=== PATIENT | female | born 1960 | race Two or more races ===

== ENCOUNTER 2020-09-28 13:44 | Emergency (ER) | payer MEDICAID, SELFPAY ==
[2020-09-28 13:52] VITALS: RESP 16; TEMP 36.8; O2SAT 98; BMI 33.3
[2020-09-28 13:55] VITALS: BP 138/91; PULSE 88
--- NOTE | 2020-09-28 14:10 | ED_ITS ---
HPI - URI/Sore Throat General Chief Complaint: Upper Respiratory Symptoms Stated Complaint: covid symptoms Time Seen by Provider: 09/28/20 14:09 Source: patient Mode of arrival: ambulatory History of Present Illness HPI Narrative: Female the past medical history of hypertension presented to ED complaining of subjective fever, headache, body aches x4 days. Denies sore throat, ear pain, cough, CP/SOB, recent travel, sick contacts MD elicited complaint: fever Related Data Allergies Allergy/AdvReac Type Severity Reaction Status Date / Time No Known Allergies Allergy Unverified 06/24/20 18:45 [No Known Allergies*] Review of Systems Review of Systems: Constitutional: No Weight loss, +Subj Fever, No Chills ENT/Mouth: No Ear Pain, No Nasal Congestion, No Sinus Pain, No Hoarseness, No sore throat, No Rhinorrhea, No Swallowing Difficulty Cardiovascular: No Chest Pain, No SOB Respiratory: No Cough Gastrointestinal: No Nausea, No Vomiting, No Diarrhea Musculoskeletal: No joint pain, + Myalgias, No Joint Swelling Skin: No Skin Lesions, No rash Neuro: +headache Yes all other systems are reviewed and are negative [facility] Past Medical History Attestation statement: The following information was validated with the patient. Medical History (Updated 09/28/20 @ 14:14 by DAVID Guthrie) HTN (hypertension) No known health problems Social History Social History Advance Directives: No Advance Directives Information Provided: Yes Physical Exam Vital Signs: Vital Signs: Last Vital Signs Temp 98.3 F 09/28/20 13:52 Pulse 88 09/28/20 13:55 Resp 16 09/28/20 13:52 BP 138/91 H 09/28/20 13:55 Pulse Ox 98 09/28/20 13:52 Body Mass Index 33.3 Const: General: cooperative and healthy appearing Orientation/consciousness: patient oriented x3 Limitations: no limitations HENMT: Head: Yes normal to inspection Ears: hearing grossly normal bilaterally General nose exam: Normal external nose present Face and sinus: Yes normal facial exam Eyes: General: appearance normal, both eyes and all related structures EOM: EOMs intact bilaterally Neck: Neck: Yes normal visual inspection Resp: Effort & Inspection: normal respiratory effort Cardio: Rate: regular rate GI: Inspection: Yes normal to inspection Skin: Rashes: no rashes Wounds: no wounds Neuro: General: patient oriented x3 Gait exam (Neuro): Normal gait present Extrem: General: Yes normal to inspection MDM - URI/Sore Throat MDM Narrative Medical decision making narrative: On exam VSS, NAD/well-appearing, nontoxic. Likely viral syndrome/COVID-19. Afebrile today in the ED. Low concern for pneumonia Discharge Plan Discharge Clinical Impression: Upper respiratory infection Qualifiers: URI type: unspecified URI Qualified Code(s): J06.9 - Acute upper respiratory infection, unspecified Patient Disposition: Home, Self-Care Instructions: Viral Syndrome (ED) Additional Instructions: Based on your symptoms and history we have sent a COVID-19. Although your RESULT IS PENDING at this time. RESULTS should return within 3-7 days . At this time you will be contacted with either NEGATIVE OR POSITIVE results. -Please wait until we contact you for your results. At this time you will be okay for discharge. Please plan for self quarantine for up to 14 days. Do not expose yourself to others. You may not go to work. If testing does come back negative you may return to activities as long as you are no longer having any symptoms for at least 3 days. Please continue to follow cold instructions and wash your hands frequently. You may take Tylenol as directed on the bottle for pain or fever. CDC Guidelines for home isolation: - Stay away from others - WEAR A MASK if you are sick AND STAY HOME - Cover your mouth and nose with a tissue when you cough or sneeze. Dispose of tissues in a lined trash can and wash your hands immediately with soap and water for at least 20 seconds. If soap and water are not available, clean hands with alcohol-based hand top ironer that contains at least 60% alcohol. - Clean your hands often with soap and water for at least 20 seconds - Avoid touching your eyes, nose and mouth with unwashed hands - Do not share dishes, drinking glasses, cups, eating utensils, towels, or bedding with other people in your home. After using these items, wash them thoroughly with soap and water or put in the finance associate. - Clean high-touch surfaces in your isolation area ( sick room and bathroom) e very day; let a caregiver clean and disinfect high-touch surfaces in other areas of the home. Clean the area or item with soap and water or another detergent if it is dirty. Then, use a household disinfectant. - Limit contact with pets and animals: If you must care for a pet, wash your hands before and after interacting with them) Seg?n marquita s?ntomas e historial, le enviamos un COVID-19. Aunque riojas RESULTADO EST? PENDIENTE en catherien momento. Los RESULTADOS deben regresar dentro de 3-7 d?as. En catherine momento ser? contactado con resultados NEGATIVOS O POSITIVOS. -Espere hasta que nos comuniquemos con usted para conocer marquita resultados. En catherine momento estar? ebrnadine para el sarah. Planifique la auto cuarentena massiel un m?ximo de 14 d?as. No se exponga a los dem?s. Puede que no vaya a trabajar. Si las pruebas resultan negativas, puede volver a marquita actividades siempre que ya no tenga boyd?n s?ntoma massiel al menos 3 d?as. Contin?e siguiendo las instrucciones en fr?o y l?vese las ren con frecuencia. Puede elvia Tylenol tasha se indica en el frasco para el dolor o la fiebre. [place]autas de los CDC para el aislamiento en el hogar: - Mantente alejado de los dem?s - USE SIERRA M?SCARA si est? enfermo Y QUEDE EN CASA - C?brase la boca y la nariz con un pa?uelo cuando tosa o estornude. Deseche los pa?uelos desechables en un bote de basura forrado y l?vese las ren inmediata mente con agua y jab?n massiel al menos 20 segundos. Si no dispone de agua y jab?n, l?vese las ren con un desinfectante para ren a base de alcohol que contenga al menos un 60% de alcohol. - L?vese las ren con frecuencia con agua y jab?n massiel al menos 20 segundos - Evite tocarse los ojos, la nariz y la boca con las ren sin nela - No comparta platos, vasos, tazas, cubiertos, toallas o ropa de cama con otras personas en riojas hogar. Despu?s de usar estos art?culos, l?velos bernadine con agua y jab?n o p?ngalos en el lavavajillas. - Limpie las superficies de alto contacto en riojas ?chetna de aislamiento ( habitaci?n de enfermo y ba?o) todos los d?as; deje que un cuidador limpie y desinfecte las superficies de alto contacto en otras ?reas de la casa. Limpie el ?chetna o el art?culo con agua y jab?n u otro detergente si est? sucio. Luego, use un desinfectante dom?stico. - Limite el contacto con mascotas y animales: si debe cuidar a sierra mascota, l?vese las ren antes y despu?s de interactuar con ellos) Referrals: Katina Tran MD [Primary Care Provider] - 3 days (call) Print Language: Martiniquais
== END 2020-09-28 14:49 | disposition home or self-care (01) ==
PROVIDERS: Physician Assistant; Emergency Provider Emergency Medicine; PCP Internal Medicine
DX: J06.9 Acute upper respiratory infection, unspecified (principal); R50.9 Fever, unspecified; M79.10 Myalgia, unspecified site; R51.9 Headache, unspecified; Z20.828 Contact with and (suspected) exposure to other viral communicable diseases
CPT/HCPCS: 99283; U0003

== ENCOUNTER 2020-11-29 11:25 | Outpatient (REF) | payer MEDICAID, SELFPAY | END 2020-11-29 11:26 | disposition home or self-care (01) | LOC: HO.LAB 11:25 | PROVIDERS: PCP Internal Medicine; Visit Provider Internal Medicine | DX: Z20.822 Contact with and (suspected) exposure to COVID-19 (principal) | CPT/HCPCS: 36415; C9803; U0003; U0005 ==

== ENCOUNTER 2021-01-31 08:47 | Outpatient (REF) | payer MEDICAID, SELFPAY ==
--- NOTE | ~2021-01-31 | MM_ITS ---
EXAMINATION: MM SCREENING DIGITAL BREAST TOMOSYNTHESIS, BILATERAL CLINICAL INFORMATION: Screening. Asymptomatic. The lifetime risk of breast cancer based on the Tyrer-Cuzick Model is 5%. COMPARISON: Mammography: 07/02/2017, 08/31/2014 TECHNIQUE: Digital breast tomosynthesis is performed in both the craniocaudal and mediolateral oblique views along with computer-aided detection (CAD). Synthesized 2D images are generated from the tomosynthesis. FINDINGS: There are scattered areas of fibroglandular density (ACR BI-RADS breast composition Category b). There are no significant masses, abnormal calcifications, or other abnormalities. Parenchymal pattern is similar to prior studies. No significant changes. MM/MM tomosynthesis screening BI IMPRESSION: No mammographic evidence of malignancy. ASSESSMENT: BI-RADS 1: Negative RECOMMENDATION: Routine annual mammography screening. This patient's information was entered into a reminder system with a target due date for their next mammogram.
== END 2021-01-31 08:48 | disposition home or self-care (01) ==
LOC: HO.MAMMO 08:47
PROVIDERS: PCP Internal Medicine; Visit Provider Internal Medicine
DX: Z12.31 Encounter for screening mammogram for malignant neoplasm of breast (principal)
CPT/HCPCS: 77063; 77067

== ENCOUNTER 2021-04-27 14:50 | Emergency (ER) | payer MEDICAID, SELFPAY ==
--- NOTE | 2021-04-27 | ECG_ITS ---
Test Reason : DIZZINESS Blood Pressure : / mmHG Vent. Rate : 057 BPM Atrial Rate : 057 BPM P-R Int : 190 ms QRS Dur : 146 ms QT Int : 522 ms P-R-T Axes : 032 -12 065 degrees QTc Int : 508 ms Sinus bradycardia Right bundle branch block Voltage criteria for left ventricular hypertrophy Abnormal ECG When compared with ECG of 31-JUL-2016 10:33, Right bundle branch block is now Present Referred By: Generic ED Physician Electronically Signed By:MEGHAN MCDERMOTT MD
--- NOTE | ~2021-04-27 | CT_ITS ---
EXAMINATION: CT HEAD WITHOUT CONTRAST CLINICAL INFORMATION: Hypertension and dizziness COMPARISON: None TECHNIQUE: Contiguous axial imaging was performed from the skull base to vertex without intravenous administration of contrast. This CT examination was performed using dose optimization techniques as appropriate, variously including the following: *Automated exposure control *Adjustment of mA and/or kV according to patient size (this includes techniques or standardized protocols for targeted exams where dose is matched to indication/reason for exam; i.e. extremities or head) *Use of iterative reconstruction technique DLP: 7 9 mGy-cm FINDINGS: There is no evidence of acute intracranial hemorrhage or territorial infarction. No abnormal mass effect or midline shift is seen. Mcelroy to white matter differentiation is well preserved. No extra-axial fluid collections are identified. The ventricles are normal in size. There is no abnormal attenuation within the brain parenchyma. The osseous structures and soft tissues are normal. There is left maxillary sinus disease. The mastoid air cells and visualized portions of the paranasal sinuses are otherwise clear. CT/CT head/brain wo con IMPRESSION: No acute intracranial findings. Left maxillary sinus disease.
[2021-04-27 14:52] VITALS: RESP 16; O2SAT 100; BMI 29.9
[2021-04-27 14:55] VITALS: BP 205/99; PULSE 57
--- NOTE | 2021-04-27 15:05 | ED_ITS ---
HPI - General Adult General Chief complaint: Dizziness Stated complaint: HYPERTENSION FROM DENTIST OFFICE Time Seen by Provider: 04/27/21 14:57 Source: patient, EMS and triage clinician Mode of arrival: EMS Limitations: no limitations History of Present Illness MD complaint: HTN, dizziness Onset (ago): week(s) (HTN at dentist today but dizziness x 2 weeks) Location: head Radiation: non-radiation Severity: mild Relieving factors: none Exacerbating factors: none Associated symptoms: denies other symptoms Treatments prior to arrival: other (takes her BP medications daily no change from prior) Related Data Previous Rx's Medication Instructions Recorded amlodipine 5 mg PO DAILY #30 tab 04/27/21 Allergies Allergy/AdvReac Type Severity Reaction Status Date / Time No Known Allergies Allergy Verified 04/27/21 14:58 [No Known Allergies*] Review of Systems Review of Systems: Constitutional : No Weight loss, No Fever, No Chills, No Fatigue, No Malaise ENT/Mouth : No sore throat, No Rhinorrhea Eyes: No Eye Pain, No Swelling, No Redness Cardiovascular : No Chest Pain, No SOB, No Dyspnea on Exertion, No Orthopnea, No Edema, No Palpitations Respiratory : No Cough, No Sputum, No Wheezing Gastrointestinal : No Nausea, No Vomiting, No Diarrhea, No Constipation, No abdominal Pain, No Hematochezia, No Melena Genitourinary : No Dysuria, No Urinary Frequency, No Hematuria, Musculoskeletal : No joint pain, No Myalgias, No Joint Swelling Skin : No Skin Lesions, No rash Neuro : No Weakness, No Numbness, pos Dizziness, No Headache Psych : No Anxiety/Panic, No Depression Heme/Lymph: No Bruising, No Bleeding,No Lymphadenopathy Endocrine : No Polyuria, No Polydipsia All other systems reviewed and are negative [facility] Past Medical History Attestation statement: The following information was validated with the patient. Medical History HTN (hypertension) No known health problems Social History Social History (Updated 04/27/21 @ 15:30 by Jimena Arrieta DO) Patient Tobacco Use Status: Never used Tobacco Use of substances other than those prescribed or required for medical reasons: No Advance Directives: No Advance Directives Information Provided: No Patient : Yes Physical Exam Vital Signs: Vital Signs: Last Vital Signs Pulse 64 04/27/21 15:28 Resp 16 04/27/21 14:52 BP 182/107 H 04/27/21 15:28 Pulse Ox 100 04/27/21 14:52 Body Mass Index 29.9 Appearance: Alert. Oriented X3. No acute distress. Eyes: Pupils equal, round and reactive to light. ENT: Pharynx normal. Neck: Normal inspection. Neck supple. CVS: Normal heart rate and rhythm. Pulses normal. Respiratory: No respiratory distress. Breath sounds normal. Abdomen: Soft and non-tender. Skin: Skin warm and dry. Normal skin color. Normal skin turgor. Extremities: No lower extremity edema. No calf ttp Neuro: Oriented X 3. No motor deficit. No sensory deficit. Course Course Course Narrative: trop flat at 2 week scott, new RBBB but adamantly denies CP/SOB patient's BP is 170/80 completely asymptomatic stable for DC at this time wants to go home Medical Decision Making MDM Narrative Medical decision making narrative: 60 yo female with hx of HTN compliant daily with her metoprolol comes in with c/o dizziness x 2 weeks and found to have elevated BP - no change in medications, no supplements, no diet changes - no CP/SOB no headaches, has not checked her BP in months per patient suspect the cause of her 2 weeks dizziness is likely elevated BPs will attempt oral amlodipine and observe, EKG, labs, CT head for mass Lab Data Result diagrams: 04/27/21 15:04 04/27/21 15:04 Labs: Lab Results 04/27/21 04/27/21 04/27/21 Range/Units 15:04 15:04 15:04 WBC 6.4 (4.8-10.8) X10*3/uL RBC 4.47 (4.20-5.50) X10*6/uL Hgb 13.5 (12.0-16.0) g/dl Hct 39.4 (37-47) % MCV 88.1 (80-98) fL MCH 30.2 (27.0-33.0) pg MCHC 34.3 (31.0-35.0) g/dl RDW 12.4 (11.0-16.0) % Plt Count 205 (160-400) X10*3/uL MPV 9.1 L (9.4-12.3) fL Immature Gran % (Auto) 0.8 H (0.0-0.4) % Neut % (Auto) 58.4 (45-73) % Lymph % (Auto) 31.8 (20-40) % Graham % (Auto) 7.9 (2-11) % Eos % (Auto) 0.8 (0-4) % Baso % (Auto) 0.3 (0-2) % Lymph # (Auto) 2.0 (1.2-4.9) X10*3/uL Graham # (Auto) 0.5 (0.1-1.2) X10*3/uL Eos # (Auto) 0.1 (0.0-0.4) X10*3/uL Baso # (Auto) 0.0 (0.0-0.2) X10*3/uL Abs Immat Gran (auto) 0.05 H (0.00-0.03) X10*3/uL Absolute Neuts (auto) 3.8 (2.0-8.3) X10*3/uL Absolute Nucleated RBC 0.000 (0.0-0.012) X10*3/uL Nucleated RBC % (auto) 0.0 (0.0-0.2) /100WBC Sodium 140 (135-145) mmol/L Potassium 4.1 (3.3-5.1) mmol/L Chloride 106 (96-108) mmol/L Carbon Dioxide 25 (22-29) mmol/L Anion Gap 13 (12-20) BUN 14 (9-16) mg/dL Creatinine 0.79 (0.5-1.4) mg/dL Estim Creat Clear Calc 79.9 Estimated GFR > 60 Random Glucose 102 (60-115) mg/dL Calcium 9.5 (8.4-10.2) mg/dL Troponin I High Sens 7.8 (<3.5-17.0) ng/L ECG Data Attestation: I personally reviewed and interpreted this ECG as follows: Interpretation: Rate: 57 Rhythm: sinus bradycardia Mccamey: left, LVH Normal P waves. Normal ERINN. RBBB ST T wave : nonspecific lateral leads no KEY qTC: normal prior studies: RBBB is new, nonspecific changes are old The study has been interpreted contemporaneously by me. . Discharge Plan Discharge Clinical Impression: HTN (hypertension) Qualifiers: Hypertension type: unspecified Qualified Code(s): I10 - Essential (primary) hypertension Patient Disposition: Home, Self-Care Instructions: Chronic Hypertension (ED) Additional Instructions: return to ED for any worsening symptoms or concerns Prescriptions: New amlodipine 5 mg tablet 5 mg PO DAILY Qty: 30 RF: 1 Referrals: Katina Tran MD [Primary Care Provider] - 2 days (recheck blood pressure) Print Language: Stateless
[2021-04-27 15:14] LABS: MANUAL DIFF FLAG NO
[2021-04-27 15:19] LABS: Basophils Percent Auto 0.3 % (0-2); Eosinophils Absolute Auto 0.1 X10*3/uL (0.0-0.4); Eosinophils Percent Auto 0.8 % (0-4); Hematocrit 39.4 % (37-47); Hemoglobin 13.5 g/dl (12.0-16.0); Imm Gran Abs Auto 0.05 X10*3/uL (0.00-0.03); Imm Gran Pct Auto 0.8 % (0.0-0.4); Lymphocytes Percent Auto 31.8 % (20-40); Mean Corpuscular HGB Conc 34.3 g/dl (31.0-35.0); Mean Corpuscular Hemoglobin 30.2 pg (27.0-33.0); Mean Corpuscular Volume 88.1 fL (80-98); Mean Platelet Volume 9.1 fL (9.4-12.3); Monocytes Absolute Auto 0.5 X10*3/uL (0.1-1.2); Monocytes Percent Auto 7.9 % (2-11); Neutrophils Absolute Auto 3.8 X10*3/uL (2.0-8.3); Neutrophils Percent Auto 58.4 % (45-73); Platelet Count 205 X10*3/uL (160-400); Red Blood Count 4.47 X10*6/uL (4.20-5.50); Red Cell Distribution Width 12.4 % (11.0-16.0); White Blood Count 6.4 X10*3/uL (4.8-10.8)
[2021-04-27 15:28] VITALS: BP 182/107; PULSE 64
[2021-04-27] MEDS: amLODIPine Besylate 5 MG TABLET PO (15:28)
[2021-04-27 15:55] LABS: Anion Gap 13 (12-20); Blood Urea Nitrogen 14 mg/dL (9-16); Calcium 9.5 mg/dL (8.4-10.2); Carbon Dioxide 25 mmol/L (22-29); Chloride 106 mmol/L (96-108); Creatinine Clr Calc Pharmacy 79.9; Estimated Glomerular Filt Rate > 60; Glucose Random 102 mg/dL (60-115); Potassium 4.1 mmol/L (3.3-5.1); Sodium 140 mmol/L (135-145)
[2021-04-27 15:58] LABS: Troponin-I High Sensitivity 7.8 ng/L (<3.5-17.0)
[2021-04-27 16:26] VITALS: BP 177/87
[2021-04-27 16:50] VITALS: BP 164/91
== END 2021-04-27 16:52 | disposition home or self-care (01) ==
PROVIDERS: Emergency Provider Emergency Medicine; PCP Internal Medicine
DX: I10 Essential (primary) hypertension (principal); Z79.899 Other long term (current) drug therapy
CPT/HCPCS: 36415; 70450; 80048; 84484; 85025; 93005; 96374; 99283; 99284

== ENCOUNTER 2022-02-06 09:41 | Outpatient (REF) | payer MEDICAID, SELFPAY ==
--- NOTE | ~2022-02-06 | MM_ITS ---
EXAMINATION: MM SCREENING DIGITAL BREAST TOMOSYNTHESIS, BILATERAL CLINICAL INFORMATION: Screening. Asymptomatic. The lifetime risk of breast cancer based on the Tyrer-Cuzick Model is 4%. COMPARISON: Mammography: 01/31/2021, 07/02/2017, 08/31/2014 TECHNIQUE: Digital breast tomosynthesis is performed in both the craniocaudal and mediolateral oblique views along with computer-aided detection (CAD). Synthesized 2D images are generated from the tomosynthesis. FINDINGS: There are scattered areas of fibroglandular density (ACR BI-RADS breast composition Category b). There are no significant masses, abnormal calcifications, or other abnormalities. Parenchymal pattern is similar to prior studies. There is no developing density or architectural abnormality. The axilla and skin contours are unremarkable. No significant changes. MM/MM tomosynthesis screening BI IMPRESSION: No mammographic evidence of malignancy. ASSESSMENT: BI-RADS 1: Negative RECOMMENDATION: Routine annual mammography screening. This patient's information was entered into a reminder system with a target due date for their next mammogram.
== END 2022-02-06 09:42 | disposition home or self-care (01) ==
LOC: HO.MAMMO 09:41
PROVIDERS: PCP Internal Medicine; Visit Provider Internal Medicine
DX: Z12.31 Encounter for screening mammogram for malignant neoplasm of breast (principal)
CPT/HCPCS: 77063; 77067

== ENCOUNTER 2023-02-12 10:18 | Outpatient (REF) | payer MEDICAID, SELFPAY ==
--- NOTE | ~2023-02-12 | MM_ITS ---
EXAMINATION: MM SCREENING DIGITAL BREAST TOMOSYNTHESIS, BILATERAL CLINICAL INFORMATION: Screening. Asymptomatic. The lifetime risk of breast cancer based on the Tyrer-Cuzick Model is 4%. COMPARISON: Mammography: 02/06/2022, 01/31/2021, 07/02/2017 TECHNIQUE: Digital breast tomosynthesis is performed in both the craniocaudal and mediolateral oblique views along with computer-aided detection (CAD). Synthesized 2D images are generated from the tomosynthesis. FINDINGS: There are scattered areas of fibroglandular density (ACR BI-RADS breast composition Category b). There are no significant masses, abnormal calcifications, or other abnormalities. No architectural abnormality or developing density or significant change from prior studies. The axilla and skin contours are unremarkable. MM/MM tomosynthesis screening BI IMPRESSION: No mammographic evidence of malignancy. ASSESSMENT: BI-RADS 1: Negative RECOMMENDATION: Routine annual mammography screening. This patient's information was entered into a reminder system with a target due date for their next mammogram.
== END 2023-02-12 10:19 | disposition home or self-care (01) ==
LOC: HO.MAMMO 10:18
PROVIDERS: Visit Provider Internal Medicine
DX: Z12.31 Encounter for screening mammogram for malignant neoplasm of breast (principal)
CPT/HCPCS: 77063; 77067

== ENCOUNTER 2024-02-06 12:12 | Outpatient (REF) | payer MEDICAID, SELFPAY ==
--- NOTE | ~2024-02-06 | XR_ITS ---
EXAMINATION: XR LUMBOSACRAL SPINE WITH OBLIQUES CLINICAL INFORMATION: Radiculopathy of lumbar region. COMPARISON: None available. TECHNIQUE: 6 views of the lumbar spine. FINDINGS: Dextroscoliosis of the lumbar spine. Bilateral sacroiliac joints are symmetric. Bones are diffusely demineralized. Degenerative changes in the imaged lower thoracic spine. Grade 1 anterolisthesis of L5 on S1 with loss of disc space height, spondylosis and facet arthritis. Degenerative changes on limited views of the bilateral sacroiliac joints and hips. XR/XR lumbar spine 4V min IMPRESSION: Grade 1 anterolisthesis of L5 on S1 with loss of disc space height, spondylosis and facet arthritis.
== END 2024-02-06 12:13 | disposition home or self-care (01) ==
LOC: HO.HHCX 12:12
PROVIDERS: Visit Provider Internal Medicine
DX: M54.16 Radiculopathy, lumbar region (principal)
CPT/HCPCS: 72110

== ENCOUNTER 2024-02-07 12:13 | Outpatient (REF) | payer MEDICAID, SELFPAY ==
[2024-02-07 13:53] LABS: Alanine Aminotransferase 13 U/L (0-31); Albumin Level 4.5 g/dL (3.5-5.0); Alkaline Phosphatase 79 U/L (39-117); Anion Gap 17 (12-20); Aspartate Amino Transferase 16 U/L (5-31); Bilirubin Total 0.8 mg/dL (0.0-1.0); Blood Urea Nitrogen 17 mg/dL (9-16); Calcium 10.3 mg/dL (8.4-10.2); Carbon Dioxide 26 mmol/L (22-29); Chloride 101 mmol/L (96-108); Cholesterol 128 mg/dL (<200); Estimated Glomerular Filt Rate > 60; Glucose Random 96 mg/dL (60-115); HDL Cholesterol 38 mg/dL (>40); LDL Cholesterol Calculated 66 mg/dL (<100); Sodium 140 mmol/L (135-145); Total Protein 8.3 g/dL (6.5-8.0); Triglycerides 122 mg/dL (<150)
[2024-02-07 14:12] LABS: Reflex LDLD? No
[2024-02-07 14:15] LABS: TSH reflex Free T4 0.86 uIU/mL (0.32-4.0)
== END 2024-02-07 12:14 | disposition home or self-care (01) ==
LOC: HO.HHCL 12:13
PROVIDERS: Visit Provider Internal Medicine
DX: R07.2 Precordial pain (principal); I16.0 Hypertensive urgency
CPT/HCPCS: 36415; 80053; 80061; 84443

== ENCOUNTER 2024-03-14 10:28 | Outpatient (REF) | payer MEDICAID, SELFPAY ==
--- NOTE | ~2024-03-14 | MR_ITS ---
EXAMINATION: MR LUMBAR SPINE WITHOUT CONTRAST CLINICAL INFORMATION: Low back pain, chronic. Radicular symptoms. COMPARISON: No prior MR. Lumbar x-ray 02/06/2024 TECHNIQUE: Multiplanar multisequence MR imaging of the lumbar spine was done without IV contrast. Examination was performed on a 1.5 Mariana unit. FINDINGS: Coronal Alignment: Trace dextroconvex scoliosis. Sagittal Alignment: Normal lordosis. 3 mm degenerative anterolisthesis L5 on S1. Trace degenerative retrolisthesis L3 on L4. Lumbosacral Junction: Normal. There are 5 [id number] lumbar-type vertebral bodies. Vertebral Bodies/Bone Marrow: No compression deformities. No gross bone marrow edema identified aside from minimal edema in the left pedicle of L1. No abnormal infiltrating bone marrow signal. Minimal fatty type endplate changes at L5-S1. Discs: Mild diffuse degenerative disc changes without significant loss of disc height or signal with the exception of L5-S1, where there is diffuse loss of signal, without significant loss of height. Spinal Canal: There is mild congenital spinal canal narrowing shortened pedicles. This will exacerbate spondylolytic findings. Conus Medullaris: Terminates at superior endplate of L2. Morphology and signal is normal. Distal cord is normal in caliber and signal throughout. Intradural Nerve Roots: Normal in appearance without evidence of mass or clumping. Axial Disc Space Images: T12-L1: Trace disc bulge without significant mass effect. Mild degenerative facet changes bilaterally. Minimal central canal narrowing. Neural foramen are patent. L1-L2: Mild bilateral right greater than left facet hypertrophy and degeneration. Minimal posterior ligamentous infolding. No significant disc pathology. Minimal congenital spinal canal narrowing. Lateral recesses are patent. Mild neural foraminal narrowing bilaterally. L2-L3: No significant disc pathology identified. Mild to moderate hypertrophic facet changes bilaterally with mild posterior ligamentous infolding/thickening. There is mild congenital canal narrowing. No significant lateral recess narrowing. Mild bilateral neural foraminal narrowing. L3-L4: Subtle retrolisthesis approximately 2 mm, and there are left greater than right small disc osteophytic protrusions within the foraminal zones. There are mild to moderate hypertrophic degenerative facet changes bilaterally with posterior ligamentous thickening/infolding. There is an extracanalicular synovial cyst arising from the posterior left facet joint measuring 5 mm in diameter. There is mild congenital canal narrowing, mild bilateral subarticular recess narrowing with contact but no deviation of the traversing left L4 roots. No mass effect on the traversing right L4 root. There is anop-fr-fxntnioy bilateral neural foraminal narrowing without evidence of nerve root impingement. L4-L5: There are bilateral foraminal disc osteophytic protrusions which extend lateral to foramen. Moderate hypertrophic degenerative facet changes are present, with prominent posterior ligamentous thickening/infolding. There is congenital canal narrowing. Combination of findings is resulting in moderate central canal stenosis, mild to moderate bilateral subarticular recess stenosis with contact but no impingement of the traversing bilateral L5 nerve roots. There is moderate to severe bilateral neural foraminal narrowing left greater than right with mild deformation/mild impingement of both the exiting L4 roots within the lateral foraminal zones. L5-S1: Mild disc uncovering secondary to 3 mm of anterolisthesis, shallow diffuse bulging disc with left foraminal annular fissure, extending into both foraminal zones and lateral to foramen. Moderate to severe hypertrophic degenerative facet changes bilaterally with prominent posterior ligamentous thickening/infolding. There is moderate central canal stenosis, moderate bilateral subarticular recess stenosis with contact and possible mild impingement of the traversing left S1 roots. There is contact but no definite impingement of the traversing right S1 roots. There is moderate bilateral foraminal narrowing with contact but no deformation or impingement of the exiting L5 roots. Imaged SI Joints: Mild degenerative changes. Incompletely imaged. Paravertebral and Included Extraspinal Soft Tissues: Paravertebral and paraspinous musculature is normal. Aorta is normal in caliber. Imaged kidneys appear normal. No adenopathy. MR/MR lumbar spine wo con IMPRESSION: 1. Mild spondylosis superimposed upon mild congenital canal narrowing with short pedicles. Acquired spondylolisthesis most significant at L5-S1 where there is 3 mm of anterolisthesis, moderate central canal stenosis, moderate bilateral subarticular recess stenosis, and moderate bilateral foraminal narrowing. Moderate to severe facet hypertrophy and degeneration at this level. 2. At L4-L5, posterior element hypertrophy with bilateral foraminal disc osteophytic protrusions result in moderate to severe bilateral neural foraminal narrowing with possible impingement of the exiting bilateral L4 roots in the lateral foraminal zones. There is moderate central canal stenosis, and mild to moderate bilateral subarticular recess stenosis. See above for details. 3. Refer to the body of report for additional findings.
== END 2024-03-14 10:29 | disposition home or self-care (01) ==
LOC: HO.MRI 10:28
PROVIDERS: PCP Internal Medicine; Visit Provider Internal Medicine
DX: M54.16 Radiculopathy, lumbar region (principal)
CPT/HCPCS: 72148

== ENCOUNTER → 2024-03-14 10:28 | Outpatient (BNV) | payer MEDICAID, SELFPAY | PROVIDERS: PCP Internal Medicine; Visit Provider Radiology Diagnostic Radiology | DX: M54.50 Low back pain, unspecified (principal) | CPT/HCPCS: 72148 ==

== ENCOUNTER 2024-05-14 12:47 | Outpatient (AMB) | payer MEDICAID, SELFPAY ==
--- NOTE | 2024-05-14 13:09 | A.OFFVIS_ITS ---
Vital Signs 05/14/24 13:10 Height 5 ft 1 in Weight 185 lb 3.013 oz BMI 35.0 BP 180/80 H Blood Pressure Location Lt brachial Position Sitting Pulse 66 Pulse Source Monitor Intake Visit Reasons: band shover/dr antunez/precordial pain,htn Skin Grader Name: JUAN RAMON [id number] Allergies No Known Allergies [No Known Allergies*] Allergy (Verified 04/27/21 14:58) Medication List - Last Reconciled 05/14/24 by Jacob Vitale MD acetaminophen 500 mg PO Q6H PRN amlodipine 5 mg PO DAILY aspirin 1 tab PO DAILY ergocalciferol (vitamin D2) 1,250 mcg PO QWEEK furosemide 40 mg PO DAILY gabapentin 100 mg PO BID labetalol 400 mg PO Q12H HPI Comments Details: Daniel has been referred for cardiac evaluation. Per PCP note, she has been having chest pain that is exertional but repeatedly ask the question with wood flooring specialist and patient continues to deny that she ever had chest pain. Hence not entirely clear if she had chest pain or not. Otherwise, seems to have uncontrolled hypertension. Even today, blood pressure is high. I went over the names of the above medications but again she is not able to clarify 1 way or another she is taking them or not. Otherwise, no known coronary disease myocardial infarction or cardiomyopathy. [facility] Medical History (Updated 05/14/24 @ 13:36 by Jacob Vitale MD) Radiculopathy of lumbar region TB lung, latent Obesity HTN (hypertension) No known health problems Surgical History (Updated 03/31/24 @ 14:02 by ALEX Pires) S/P appendectomy Family History (Updated 03/31/24 @ 13:39 by Priyanka Franco [facility]) Mother HTN (hypertension) Social History (Updated 05/14/24 @ 13:22 by Lyndsay Mejia) Alcohol intake: never Patient Tobacco Use Status: Never used Tobacco Review of Systems Const Denies weakness ENT Denies dizziness Card Denies chest pain, Denies chest pain with activity, Denies syncope, Denies rapid heart rate, Denies pedal edema, Denies edema, Denies leg edema, Denies lighth eadedness, Denies palpitations, Denies dyspnea, Denies dyspnea on exertion and Denies orthopnea Resp Denies cough, Denies dyspnea and Denies dyspnea on exertion GI Denies hematochezia and Denies change in stool character Musc Denies abnormal gait, Denies muscle cramps, Denies muscle weakness, Denies numbness, Denies radiating pain into limb and Denies tingling Neuro Denies abnormal gait, Denies dizziness, Denies syncope, Denies numbness, Denies tingling and Denies weakness Endo Denies palpitations Physical Exam Vital Signs: Last Vital Signs Pulse 66 05/14/24 13:10 BP 180/80 H 05/14/24 13:10 BMI result Body Mass Index 35.0 Const General: comfortable and no acute distress Orientation/consciousness: patient oriented x3 HEENT Other: Unremarkable Head: Yes normal to inspection Neck Neck: Yes normal visual inspection Chest Chest palpation & inspection: normal inspection of the chest Resp Auscultation: clear to auscultation bilaterally Cardio Palpation: normal PMI Heart sounds: S1 normal heart sound present, S2 normal heart sound present, no gallops, Murmur heart sound present diastolic II/ and no rubs GI Palpation (GI): Soft to palpation Back/Spine/Pelvis Other: unremarkable Skin General skin exam: no rashes or lesions noted Neuro General: patient oriented x3 Extrem General: Yes normal to inspection Psych Mental Status: mental status grossly normal Office Procedures EKG Details: EKG with underlying sinus rhythm at 66/Min; right bundle-branch block; left ventricular hypertrophy with repolarization findings; normal TX; slight prolongation of corrected QT but it is also related to QRS widening. [id number], Complete Assessment & Plan Assessment & Plan (1) Uncontrolled hypertension: Code(s): I10 - Essential (primary) hypertension Category: Medical Plan: Unable to clarify as patient does not know the names. Per PCP note, BP is uncontrolled mainly because of noncompliance. Will contact pharmacy. Otherwise, get echocardiogram and ultrasound of the renal arteries. (2) Precordial chest pain: Code(s): R07.2 - Precordial pain Category: Medical Plan: Mentioned in PCP note, but patient continues to deny. Once blood pressure is better controlled, ischemia workup. Orders: Orders CA echo transthoracic complete Today I10 - Essential (primary) hypertension US renal doppler Today I10 - Essential (primary) hypertension, I70.1 - Atherosclerosis of renal artery Coding Level of Care Code New Pt Level 4 (19474) Diagnoses Uncontrolled hypertension I10 Precordial chest pain R07.2 CPT Codes EKG - CPT: 23476-[id number], Complete ([id number])
[2024-05-14 13:10] VITALS: BP 180/80; PULSE 66; BMI 35.0
== END 2024-05-14 13:34 | disposition home or self-care (01) ==
PROVIDERS: PCP Internal Medicine; Referring Provider Internal Medicine; Visit Provider Internal Medicine
DX: I10 Essential (primary) hypertension (principal); R07.2 Precordial pain
CPT/HCPCS: 93010; 99204

== ENCOUNTER → 2024-05-14 12:47 | Outpatient (BNVA) | payer MEDICAID, SELFPAY | PROVIDERS: PCP Internal Medicine; Visit Provider Internal Medicine | DX: R07.2 Precordial pain (principal); I10 Essential (primary) hypertension; R94.31 Abnormal electrocardiogram [ECG] [EKG]; I45.10 Unspecified right bundle-branch block; I51.7 Cardiomegaly | CPT/HCPCS: 93005; 99202 ==

== ENCOUNTER 2025-01-15 14:29 | Outpatient (REF) | payer MEDICAID, SELFPAY ==
[2025-01-15 16:36] LABS: Anion Gap 15 (12-20); Blood Urea Nitrogen 16 mg/dL (9-16); Calcium 9.4 mg/dL (8.4-10.2); Carbon Dioxide 27 mmol/L (22-29); Chloride 105 mmol/L (96-108); Estimated Glomerular Filt Rate > 60; Glucose Random 94 mg/dL (60-115); Potassium 3.8 mmol/L (3.3-5.1); Sodium 143 mmol/L (135-145)
--- OUTSIDE RECORDS SUMMARY | 2025-01-15 17:12 | XMS_ITS | Encounter Summary ---
Author Organization [employer] Address [address] [place] [address] Care Team Providers Care Qi Specialist Name Role Phone Katina Tran MD Primary Care Provider + Reason for Visit * Reason Comments Hypertension Encounter Details Date Type Department Care Team (Latest Contact Info) Description 01/15/2025 2:00 PM EDT Clinical Support [facility] MEDICINE [address] [place], [place] [phone] Isa Siddiqui RN [address] [place] [address] Primary hypertension Social History Tobacco Use Types Packs/Day Years Used Date Smoking Tobacco: Never Smokeless Tobacco: Never Alcohol Use Standard Drinks/Week Comments Never 0 (1 standard drink = 0.6 oz pur e alcohol) Alcohol Answer Date Recorded Frequency of Alcohol Consumption Not on file 03/05/2024 Average Number of Drinks Not on file 024 Frequency of Binge Drinking Not on file 02/06 Score 0 03/05/2024 Depression Answer Date Recorded Patient Health Questionnaire-9 Score 9 03/05/2024 Patient Health Questionnaire-9 Score 9 03/05/2024 Last PHQ-9: Questionnaire Data Not on file 0 03/05/2024 Housing Stability Answer Date Recorded What is your housing situation today? I have akshat flores 01/30/[address] you li ve. Do you have problems with any of the following? Water leaks 01/30/2024 Food Insecurity Answer Date Recorded Within the past 12 months, y ou worried that your food would run out before you got money to buy more: Sometimes True 2023 Within the past 12 months,th e food you bought just didn't last and you didn't have enough money to get more: Sometimes True 01/30/2024 Transportation Answer Date Recorded In the past 12 months, has l ack of transportation kept you from medical appts, meetings, work or from getting things needed for daily living? No 08/11/2023 Utilities Answer Date Recorded In the past 12 months, has t he electric, gas, oil or water company threatened to shut off services in your home? No 08/11/2023 Depression Answer Date Recorded Patient Health Questionnaire-2 Score 4 03/05/2024 Comments Unknown Sex and Gender Information Value Date Recorded Sex Assigned at Female 08/07/2022 10:26 AM EDT Legal Sex Female 10:26 AM EDT Gender Identity Female 08/07/2022 10:26 AM EDT Sexual Orientation Don't know 08/07/2022 10 :26 AM EDT documented as of this encounter Last Filed Vital Signs Vital Sign Reading Time Taken Comments Blood Pressure 170/90 01/15/2025 2:53 PM EDT Pulse 74 01/15/2025 2:53 PM EDT Temperature - - Respiratory Rate - - Oxygen Saturation - - Inhaled Oxygen Concentration - - Weight - - Height - - Body Mass Index - - documented in this encounter Progress Notes * Isa Siddiqui RN - 01/15/2025 2:00 PM EDT S: Pt here for BP check nurse visit. At last appointment (01/05/25), pt's BP noted to be 166/90. Recommendations made on that day were restart lasix 40mg daily, continue amlodipine 5mg daily. Today, pt denies any blurred vision, shortness of breath, chest pain, dizziness, or headaches. Pt reports compliance with BP medication regimen, confirms that amlodipine was taken today around 10am, and she takes lasix at night which she confirms she took last night. Pt. Has BP monitor at home but has not used it in the past week. O: L arm BP: 170/90, HR 74 A: Compliance with BP medication regimen BP not at goal of <140/90 Reinforcement of Lifestyle modification including low sodium diet and exercise. P: Consulted with provider regarding BP findings. Orders at this time are start lisinopril 10mg daily, continue amlodipine and lasix daily. Pt to f/u with PCP at scheduled appt. 02/06/25 or sooner as needed. Encouraged pt. To monitor BP at home at least three times per week and bring readings to f/upappt. Advised pt. To call clinic if readings are not improving on lisinopril and pt. Verbalizes understanding, agrees to plan. Pt. Will be going to lab now to have repeat bloodwork performed documented in this encounter Plan of Treatment Upcoming Encounters Date Type Department Care Team (Late st Contact Info) Description 02/06/2025 10:45 AM EDT Office Visit [facility] [address] [place] [address] Katina Tran MD [address] [place] [address] documented as of this encounter Visit Diagnoses Diagnosis Primary hypertension Unspecified essential hypertension documented in this encounter Additional Health Concerns Assessment Noted Time PHQ-9 Depression Total Score: 9 03/05/20 24 11:21 AM EDT documented as of this encounter Care Teams Qi Specialist Relationship Specialty Start Date End Date Katina Tran MD [address] [place] [address] PCP - General Family Medicine 06/28/17 documented as of this encounter
--- OUTSIDE RECORDS SUMMARY | 2025-01-15 17:12 | XMS_ITS | Encounter Summary ---
Author Organization [employer] Address [address] [place] [address] Care Team Providers Care Scourer Name Role Phone Katina Tran MD Primary Care Provider + Encounter Details Date Type Department Care Team (Late st Contact Info) Description 03/06/2024 Orders Only [facility] [address] [place], [place] [phone] Provider, MD Sammy Social History Tobacco Use Types Packs/Day Years [...] AM EDT documented as of this encounter Plan of Treatment Upcoming Encounters Date Type Department Care Team (Late st Contact Info) Description 02/06/2025 10:45 AM EDT Office Visit [facility] MEDICINE [address] [place] [phone] Katina Tran MD [address] [place], [place] [phone] documented as of this encounter Procedures Procedure Name Priority Date/Time Associated Diagnosis Comments CBC (INCLUDES DIFFERENTIAL AND PLATELETS) W/SMEAR FOR EH Routine 02/03/2024 10:25 AM EDT documented in this encounter Results * CBC (includes Differential and Platelets) w/Smear for Ehrlichia (02/03/2024 10:25 AM EDT) Blood us Historical Provider LAB BLOOD ORDERABLES Bushra l Result documented in this encounter Visit Diagnoses Not on filedocumented in this encounter Additional Health Concerns Assessment Noted Time PHQ-9 Depression Total Score: 9 03/05/20 24 11:21 AM EDT documented as of this encounter Care Teams Scourer Relationship Specialty Start Date End Date Katina Tran MD [address] [place] [address] [phone] PCP - General Family Medicine 06/28/17 documented as of this encounter
--- OUTSIDE RECORDS SUMMARY | 2025-01-15 17:12 | XMS_ITS | Encounter Summary ---
Author Organization [employer] Address [address] [place] [address] Care Team Providers Care Human Resources Representative Name Role Phone Katina Tran MD Primary Care Provider + Encounter Details Date Type Department Care Team (Late st Contact Info) Description 03/05/2024 Orders Only [facility] PEDS [address] [place], [place] [phone] Provider, MD Sammy Social History Tobacco Use [...] Description 02/06/2025 10:45 AM EDT Office Visit [facility] [address] [place], [place] [phone] Katina Tran MD [address] [place], [place] [phone] documented as of this encounter Procedures Procedure Name Priority Date/Time Associated Diagnosis Comments HEMOGLOBIN A1C Routine 03/03/2024 10:54 AM EDT documented in this encounter Results * Hemoglobin A1c (03/03/2024 10:54 AM EDT) Blood Venous blood specimen / Unknown us Historical Provider LAB BLOOD ORDERABLES Bushra l Result documented in this encounter Visit Diagnoses Not on filedocumented in this encounter Additional Health Concerns Assessment Noted Time PHQ-9 Depression Total Score: 9 03/05/20 24 11:21 AM EDT documented as of this encounter Care Teams Human Resources Representative Relationship Specialty Start Date End Date Katina Tran MD [address] [place] [address] [phone] PCP - General Family Medicine 06/28/17 documented as of this encounter
--- OUTSIDE RECORDS SUMMARY | 2025-01-15 17:12 | XMS_ITS | Encounter Summary ---
Author Organization [employer] Address [address] [facility] 7t [place] [address] Care Team Providers Care Stockroom Associate Name Role Phone Katina Tran MD Primary Care Provider + Encounter Details Date Type Department Care Team (Late st Contact Info) Description 03/10/2024 Orders Only [facility] [address] [place], [place] [phone] Provider, MD Sammy Social History Tobacco Use [...] Description 02/06/2025 10:45 AM EDT Office Visit [facility] MEDICINE [address] [place], [place] [phone] Katina Tran MD [address] [place] [address] documented as of this encounter Procedures Procedure Name Priority Date/Time Associated Diagnosis Comments BLOOD CULTURE Routine 03/02/2024 11:54 AM EDT documented in this encounter Results * Blood culture (03/02/2024 11:54 AM EDT) Blood Venous blood specimen / Unknown us Historical Provider LAB MICROBIOLOGY - GENERA L ORDERABLES Final Result documented in this encounter Visit Diagnoses Not on filedocumented in this encounter Additional Health Concerns Assessment Noted Time PHQ-9 Depression Total Score: 9 03/05/20 24 11:21 AM EDT documented as of this encounter Care Teams Stockroom Associate Relationship Specialty Start Date End Date Katina Tran MD [address] [place] [address] [phone] PCP - General Family Medicine 06/28/17 documented as of this encounter
--- OUTSIDE RECORDS SUMMARY | 2025-01-15 17:12 | XMS_ITS | Encounter Summary ---
Author Organization [employer] Address [address] [facility] 7[address] [place] [address] Care Team Providers Care Tumbler Machine Operator Name Role Phone Katina Tran MD Primary Care Provider + Encounter Details Date Type Department Care Team (Late st Contact Info) Description 12/26/2022 Orders Only [facility] & PEDS [address] [place] [address] Cheri Flores LPN Social History Tobacco Use Types Packs/Day Years Used Date Smoking Tobacco: Never Assessed Comments Unknown Sex and Gender Information Value [...] Description 02/06/2025 10:45 AM EDT Office Visit [facility] MEDICINE [address] [place] [address] Katina Tran MD [address] [place] [address] documented as of this encounter Visit Diagnoses Not on filedocumented in this encounter Care Teams Tumbler Machine Operator Relationship Specialty Start Date End Date Katina Tran MD [address] [place], [place] [phone] PCP - General Family Medicine 06/28/17 documented as of this encounter
--- OUTSIDE RECORDS SUMMARY | 2025-01-15 17:12 | XMS_ITS | Encounter Summary ---
Author Organization [employer] Address [address] [facility] [address]t [place] [address] Care Team Providers Care Shirt Operator Name Role Phone Katina Tran MD Primary Care Provider + Encounter Details Date Type Department Care Team (Late st Contact Info) Description 03/04/2024 Orders Only [facility] [address] [place], [place] [phone] Provider, MD Sammy Social History Tobacco Use [...] Description 02/06/2025 10:45 AM EDT Office Visit [facility] MEDICINE [address] [place], [place] [phone] Katina Tran MD [address] [place] [address] documented as of this encounter Procedures Procedure Name Priority Date/Time Associated Diagnosis Comments CBC Routine 03/03/2024 9:34 AM EDT SARS COV2 (COVID19) AND INFLUENZA A AND B, NAAT Routine 03/02/2024 2:04 PM EDT TROPONIN T Routine 03/02/2024 1:40 PM EDT CBC (INCLUDES DIFFERENTIAL AND PLATELETS) W/SMEAR FOR EH Routine 03/02/2024 9:40 AM EDT LACTIC ACID, VENOUS, WHOLE BLOOD Routine 03/02/2024 9:30 AM EDT documented in this encounter Results * CBC (03/03/2024 9:34 AM EDT) Blood Venous blood specimen / Unknown Historical Provider LAB BLOOD ORDERABLES Bushra l Result * SARS-CoV-2 RNA (COVID-19) and Influenza A and B, Qualitative NAAT (03/02/2024 2:04 PM EDT) Swab Historical Provider LAB MOLECULAR DIAGNOSTICS ORDERABLES Final Result * Troponin T (03/02/2024 1:40 PM EDT) Blood Venous blood specimen / Unknown [facility] Provider MD LAB BLOOD ORDERABLES Bushra l Result * CBC (includes Differential and Platelets) w/Smear for Ehrlichia (03/02/2024 9:40 AM EDT) Blood Result [facility] Provider LAB BLOOD ORDERABLES Bushra l Result * Lactic acid, venous, whole blood (03/02/2024 9:30 AM EDT) Blood Venous blood specimen / Unknown Result [facility] Provider LAB BLOOD ORDERABLES Bushra l Result documented in this encounter Visit Diagnoses Not on filedocumented in this encounter Care Teams Shirt Operator Relationship Specialty Start Date End Date Katina Tran MD [address] [place] [phone] PCP - General Family Medicine 06/28/17 documented as of this encounter
--- OUTSIDE RECORDS SUMMARY | 2025-01-15 17:12 | XMS_ITS | Encounter Summary ---
Author Organization [employer] Address [address] [place] [address] Care Team Providers Care Daycare Provider Name Role Phone Katina Tran MD Primary Care Provider + Reason for Visit * Reason Onset Date Comments Blood Pressure Check 01/15/2025 Encounter Details Date Type Department Care Team (Late st Contact Info) Description 01/15/2025 Refill [facility] MEDICINE [address] [place], [place] [phone] Isa Siddiqui RN [address] [place], [place] [phone] Primary hypertension Social History Tobacco Use Types [...] is your housing situation today? I have akshatradha flores 01/30/[address] you [...] AM EDT documented as of this encounter Miscellaneous Notes * Telephone Encounter - Isa Siddiqui RN - 01/15/2025 2:57 PM EDT Per BP CHECK today documented in this encounter Plan of Treatment Upcoming Encounters Date Type Department Care Team (Late st Contact Info) Description 02/06/2025 10:45 AM EDT Office Visit [facility] MED[facility]INE [address] [place] [address] Katina Tran MD [address] [place] [address] documented as of this encounter Visit Diagnoses Diagnosis Primary hypertension Unspecified essential hypertension documented in this encounter Additional Health Concerns Assessment Noted Time PHQ-9 Depression Total Score: 9 03/05/20 24 11:21 AM EDT documented as of this encounter Care Teams Daycare Provider Relationship Specialty Start Date End Date Katina Tran MD [address] [place] [phone] PCP - General Family Medicine 06/28/17 documented as of this encounter
--- OUTSIDE RECORDS SUMMARY | 2025-01-15 17:12 | XMS_ITS | Encounter Summary ---
Author Organization [employer] Address [address] [place] [address] Care Team Providers Care Diabetes Trainer Name Role Phone Katina Tran MD Primary Care Provider + Encounter Details Date Type Department Care Team (Latest Contact Info) Description 01/15/2025 Travel Social History Tobacco Use Types Packs/Day Years [...] Description 02/06/2025 10:45 AM EDT Office Visit [facility] MEDICINE [address] [place] [address] Katina Tran MD [address] [place] [address] documented as of this encounter Visit Diagnoses Not on filedocumented in this encounter Additional Health Concerns Assessment Noted Time PHQ-9 Depression Total Score: 9 03/05/20 24 11:21 AM EDT documented as of this encounter Care Teams Diabetes Trainer Relationship Specialty Start Date End Date Katina Tran MD [address] [place] [address] PCP - General Family Medicine 06/28/17 documented as of this encounter
--- OUTSIDE RECORDS SUMMARY | 2025-01-15 17:12 | XMS_ITS | Clinical Summary ---
Author Organization [employer] Address [address] [place] [address] Care Team Providers Care Academic Interventionist Name Role Phone Katina Tran MD Primary Care Provider + Allergies No known active allergies Medications * This document contains information received from the source organization and may not represent a complete record from that organization. ergocalciferol (Vitamin D2) 1.25 MG (13429 UT) capsule TAKE 1 CAPSULE BY MOUTH ONCE A WEEK 12 capsule 3 01/26/20 23 Active aspirin 81 MG chewable tablet Chew 1 tablet (81 mg) Once per day. 30 tablet 11 02/06/20 24 025 Active labetalol (Normodyne) 200 MG tablet Take 400 mg by mouth every 12 (twelve) hours. 03/04/20 24 Active amLODIPine (Norvasc) 5 MG tabletIndication s:Primary hypertension Take 1 tablet (5 mg) by mouth Once per day. 90 tablet 1 04/09/20 24 Active furosemide (Lasix) 40 MG tabletIndication s:Primary hypertension Take 1 tablet (40 mg) by mouth Once per day. 90 tablet 1 01/06/20 25 Active acetaminophen (Tylenol Extra Strength) 500 MG tablet Take 1 tablet (500 mg) by mouth every 8 (eight) hours if needed for moderate pain. 90 tablet 01/06/20 25 025 Active lisinopril 10 MG tabletIndication s:Primary hypertension Take 1 tablet (10 mg) by mouth Once per day. 90 tablet 01/16/20 25 026 Active furosemide (Lasix) 40 MG tabletIndication s:Primary hypertension Take 1 tablet (40 mg) by mouth Once per day. 90 tablet 1 04/09/20 24 025 Discontinued(Re order (will not trigger notification to Pharmacy)) Active Problems Problem Noted Date Diagnosed Date Lumbar radiculopathy 04/15/2024 Assessment & Plan (04/15/2024 1:03 PM EDT): - MRI results dicussed with pt - she will take Tylenol BID until next visit and I will refer to PT - advised to come to acupuncture clinic - f/u with me in 6 weeks Foraminal stenosis of lumbar region 04/15/2024 Acute pulmonary edema 03/05/2024 Assessment & Plan (03/05/2024 2:13 PM EDT): Admitted to [facility] on 03/02/24, improved now. Continue lasix 40mg+ Labetalol 400mg bid + amlodipine 5mg/d + ASA 81mg Refer to cardiology ([facility] Goldsmith) Advised re tight control of HTN Red flags to go to ED discussed with patient. 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 Adjustment disorder with depressed mood 03/05/20 Assessment & Plan (03/05/2024 2:27 PM EDT): Has a conflict with her youngest son, has passive SI, no plan. Her protective factors are family ties and alevism beliefs. She calls her siter or oldest son when feeling sick/depressed + she enjoys work. Will refer for BH, declines BE today but would like to speak with a counselor. I will refer for BE and safety plan eval. Patient was given a PCO: she will come to [facility] or call here if she feels overwhelmed, more depressed or with racing thoughts. FU with me in 6-8w Encounter for colorectal cancer screening 2023 Radiculopathy of lumbar region 03/06/2023 Assessment & Plan (03/05/2024 1:58 PM EDT): Continue Tylenol prn + gabapentin Will consider PT and referral to pain clinic once HTN/Aortic stenosis are fu by cardiology and she's cleared for exercise. Assessment & Plan (02/06/2024 11:40 AM EDT): - ordered X-Rays, may need an MRI - I will give Tylenol BID for one week and then PRN only and f/u with me in 3-4 weeks Assessment & Plan (03/06/2023 12:45 PM EDT): Most likely side effects from shingrex vs DDD of the lumbar spine use tylenol PRN + Gabapentin 200mg Daily and FU with me in 5 weeks. TB lung, latent 03/06/2023 Overview (03/06/2023): POS quantiferon test 02/2023 Assessment & Plan (03/06/2023 11:50 AM EDT): Discussed with pt regarding quantiferon results, she is unawear of any TB contact. Pt grew up in [facility], most likely past primary infection. Discussed Potential for INH prophyalixs and get xray, she declined chest xray Primary hypertension 02/02/2023 Assessment & Plan (04/15/2024 1:01 PM EDT): - BP seems to be better controlled - f/u BP with me in 6 weeks Assessment & Plan (03/05/2024 2:15 PM EDT): Better controlled, not at goal yet (goal is 120/85) patient is asymptomatic. Continue labetalol, amlodipine and lasix. She's been off lisinopril for long time (last rx pick up operator was on 08/2023). Counseled re low salt diet/increase moderate physical activity. Check home BP BIW and prn CP/ABRRON/SOTO Non smoking patient. FU with RN in 2-3w then with me in 6-8w. Assessment & Plan (02/11/2024 7:58 PM EDT): Uncontrolled, see HTN urgency. Assessment & Plan (03/06/2023 12:44 PM EDT): Uncontrolled, improved. Counseled re low salt diet/increase moderate physical activity. Check home BP BIW and prn CP/BARRON/SOTO Non smoking patient. Continue lisinopril/hctz 2 tabs per day + nifedipine 30 fu pain after 6 weeks after pain is better controlled may adjust medication if needed Assessment & Plan (02/02/2023 10:35 AM EDT): Add nifedipine XL 30 mg and FU with me in 4 weeks. Continue zestorectic 2 tablets check labs and fu with me in 4 weeks Counseled re low salt diet/increase moderate physical activity. Check home BP BIW and prn CP/BARRON/SOTO Non smoking patient. Encounter for preventive health examination 01/07 Assessment & Plan (02/06/2024 11:47 AM EDT): Discussed with patient re increase fresh fruit and vegetable intake. Counseled re moderate exercise as tolerated, up to 20 min/d Patient feels safe at home. PAP smear: overdue, she agreed to schedule pap smear after BP is better controlled, will f/u at next visit Mammogram: up to date, has appointment for next month Eye exam: up to date, next one in February 2025 CRC screen: never done, pt agreed after long discussion about importance of CRC screen she agreed to be referred to GI Lipids/FBS: up to date, ordered today due to CP/HTN Vaccinations: N/A today Assessment & Plan (02/02/2023 10:34 AM EDT): Discussed with patient re increase fresh fruit and vegetable intake. Counseled re moderate exercise as tolerated, up to 20min/d Patient feels safe at home. PAP smear Pt declined at this time. Mammogram scheduled for next month Eye exam up to date, pt already has an appointment scheduled for March 2023 CRC screen will refer to GI for colonoscopy Lipids/FBS TBO Vaccinations Tdap today and pt will go to pharmacy to have first dose of zoster, she will think about Cammy marcial, order hep b titers Dental visit counseled to make an appointment At risk for osteoporosis 02/02/2023 Screening for colorectal cancer 02/02/2023 Visual impairment 01/31/2023 Joint pain 01/31/2023 Hypertensive urgency 01/31/2023 Assessment & Plan (02/06/2024 5:10 PM EDT): - BP is uncontrolled due to non-compliance with medications. She has EKG changes, unclear if new or not so it is possible that she has an acute coronary syndrome versus stable angina. Pt adamantly declines to go to ED or have EMS called. She is aware of the possibility of having an ongoing ischemia or very high risk of it or other cardiovascular complications. She typically wants to avoid ED visits and is aware of consequences of uncontrolled HTN. - start ASA 81 mg, I gave her the first dose today. - dicussed with her importance of taking Lisinopril/hydrochlorothiazide, add Metoprolol XL 25 mg daily and d/c Procardia - declined to start Statin now but agreed to have lipids checked and will f/u with me in 4 weeks. - I will refer to cardiology for further evaluation, discussed with pt importance of seeking emergency care if she develops chest pain again. Pt has been very reluctant in general to seek medical treatments Body aches 01/31/2023 Asymptomatic PVCs 01/31/2023 Vitamin D deficiency 07/31/2017 Assessment & Plan (02/02/2023 10:31 AM EDT): Off vitamin D for one month check vit d levels and FU with me in 4 weeks Microscopic hematuria 07/02/2017 Obesity 06/28/2017 Resolved Problems Problem Noted Date Diagnosed Date Resolved Date COVID-19 01/31/2023 03/05/2024 Acute upper respiratory infection 01/31/2023 03/05/2024 Encounters Date Type Department Care Team Description 01/15/2025 2:00 PM EDT Clinical Support [facility] [address] [place] [id number] Isa Siddiqui, RN Primary hypertension 01/15/2025 Refill [facility] [address] [place] [address] Isa Siddiqui, RN Primary hypertension 01/15/2025 Travel 01/05/2025 2:40 PM EDT Office Visit [facility] [address], [place] [phone] Name, MD Mikhail Primary hypertension (Primary Dx); Bilateral leg edema; Chronic pain of left ankle 01/05/2025 Telephone [facility] [address] [place], [place] [phone] Isa Siddiqui RN Appointment Request 12/19/2024 Population Health Risk Score [facility] ([facility] Department [address] [place] [phone] Provider, Population Health Generic 11/27/2024 Telephone [facility] [address] [place] [address] Katina Tran MD May recall from Last 3 Months Immunizations Name Administration Dates Next Due Influenza injectable quadriv alent IIV4 with preservative 06/28/2017 Zoster, Recombinant 02/02/2023 Family History Medical History Relation Name Comments Hypertension Mother Relation Name Status Comments Mother Social History Tobacco Use Types Packs/Day Years Used Date Smoking Tobacco: Never Smokeless Tobacco: Never Tobacco Cessation:Counseling Given: Not Answered Alcohol Use Standard Drinks/Week Comments Never 0 [...] Don't know 08/07/2022 10 :26 AM EDT Last Filed Vital Signs Vital Sign Reading Time Taken Comments Blood Pressure 170/90 01/15/2025 2:53 PM EDT Pulse 74 01/15/2025 2:53 PM EDT Temperature 36.7 ??C (98.1 ??F) 01/05/2025 1:48 PM ED T Respiratory Rate 17 01/05/2025 1:48 PM EDT Oxygen Saturation 97% 02/06/2024 10:11 AM EDT Inhaled Oxygen Concentration - - Weight 86.9 kg (191 lb 9.6 oz) 01/05/2025 1:48 P M EDT Height 165.1 cm (5' 5 ) 01/05/2025 1:48 PM EDT Body Mass Index 31.88 01/05/2025 1:48 PM EDT Plan of Treatment Upcoming Encounters Date Type Department Care Team (Late st Contact Info) Description 02/06/2025 10:45 AM EDT Office Visit [facility] [address] [place] [address] Katina Tran MD [address] [place] [address] Health Maintenance Due Date Last Done Comments CT Colonography 1960 Colonoscopy 1960 Colorectal Cancer Screening 1960 FIT DNA/Cologuard 1960 FIT 1960 FOBT 1960 HIV Screening 1960 Sigmoidoscopy 1960 DTaP/Tdap/Td Vaccines (1 - Tdap) 1979 Pneumococcal Vaccine: 50+ Years (1 of 2 - PCV) 1979 Pap Smear 1981 Cervical Cancer Screening 1990 HPV/Cotest 1990 RSV Patients and Patients Aged 60 years or older (1 - Risk 60-74 years 1-dose series) 2020 Zoster Vaccines (2 of 2) 03/30/2023 02/02/2023 Mammogram 02/13/2024 02/12/2023, 05/0 05/2023, 02/12/2023, Additional history exists COVID-19 Vaccine ( season) 2024 04/17/2021, 03/20/2021 Influenza Vaccine (#1) 2024 06/28/2017 Depression Monitoring 09/05/2024 03/05/2024, 024 SDOH Screening 01/29/2025 01/30/2024 Alcohol/Substance Use Screening 03/05/2025 03/05/2024 Depression Screening 03/05/2025 03/05/2024, 03/05/20 Tobacco Screening 01/05/2026 01/05/2025 Lipid Panel 02/06/2029 02/07/2024, 0504/2023, 06/27/2021 Hepatitis C Screening Completed 02/21/2023 HIB Vaccines Aged Out No longer eligi ble based on patient's age to complete this topic HPV Vaccines Aged Out No longer eligi ble based on patient's age to complete this topic Hepatitis A Vaccines Aged Out No long er eligible based on patient's age to complete this topic Hepatitis B Vaccines Aged Out No long er eligible based on patient's age to complete this topic IPV Vaccines Aged Out No longer eligi ble based on patient's age to complete this topic Meningococcal Vaccine Aged Out No arslan cornelius eligible based on patient's age to complete this topic RSV under 20 months Aged Out No longe r eligible based on patient's age to complete this topic Rotavirus Vaccines Aged Out No longer eligible based on patient's age to complete this topic Procedures Procedure Name Priority Date/Time Associated Diagnosis Comments BASIC METABOLIC PANEL Routine 01/15/2025 2:31 PM EDT Primary hypertension Bilateral leg edema LIPID PANEL WITH REFLEX TO DIRECT LDL Routine 02/07/2024 12:17 PM EDT Precordial pain Hypertensive urgency HEPATITIS PANEL, GENERAL Routine 02/21/2023 9:42 AM EDT Encounter for preventive health examination HM MAMMOGRAPHY Routine 02/12/2023 from Last 3 Months or Most Recently Relevant to Health Maintenance Results * Basic Metabolic Panel (01/15/2025 2:31 PM EDT) Sodium 143 135 - 145 mmol/L [facility] Potassium 3.8 3.3 - 5.1 mmol/L [facility] Chloride 105 96 - 108 mmol/L [facility] Carbon Dioxide 27 22 - 29 mmol/L [facility] Anion Gap 15 12 - 20 [facility] Urea Nitrogen (BUN) 16 9 - 16 mg/dL [facility] Creatinine, Serum 0.71 0.5 - 1.4 mg/dL [facility] Estimated Glomerular Filt Rate >60 [facility] Comment:Chronic Kidney Disea se: Estimated GFR < 60 mL/min/[id number] Kidney Disease: Estimated GFR < 15 mL/min/1.73m2 Glucose 94 60 - 115 mg/dL [facility] Calcium 9.4 8.4 - 10.2 mg/dL [facility] Blood Venous blood specimen / Unknown 01/15/2025 2:31 PM EDT 01/15/2025 3:57 PM EDT us Mikhail Name LAB BLOOD ORDERABLES Final Resul t [facility] [address] [place] [phone] * (ABNORMAL) Lipid Panel with Reflex to Direct LDL (02/07/2024 12:17 PM EDT) Triglycerides 122 <150 mg/dL [facility] Comment:Desirable Triglyceri de: less than 150 mg/dLBorderline High Triglyceride 150-199 mg/dLHigh Triglyceride: 200-499 mg/dLVery High Triglyceride: greater than or equal to 5OO mg/dL Cholesterol 128 <200 mg/dL [facility] Comment:Desirable Cholestero l: less than 200 mg/dLBorderline High Cholesterol: 200-239 mg/dLHigh Cholesterol: greater than 239 mg/dL LDL Cholesterol Calculated 66 <100 mg/dL [facility] Comment:Desirable LDL: less than 100 mg/dLNear Optimal/Above Optimal LDL: 110- 129 mg/dLBorderline High LDL: 130-159 mg/dLHigh LDL: 160-189 mg/dLVery High LDL: greater than or equal to 190 mg/dL HDL Cholesterol 38(L) >40 mg/dL [facility] Comment:Desirable HDL: great er than 40 mg/dL Note: This HDL assay may give artificially low results in patients with liver disease. Blood 02/07/2024 12:1 7 PM EDT 02/07/2024 12:57 PM EDT Katina Tran MD LAB BLOOD ORDERABLES Fin al Result [facility] [address] [place] [phone] * (ABNORMAL) Hepatitis Panel, General (02/21/2023 9:42 AM EDT) Hepatitis A Antibody Total REACTIVE( A) NON-REACT [employer] [place] [facility] Comment: For additional information, please refer to http://education.[employer]/faq/BCW125 (This link is being provided for informational/ educational purposes only.) Hepatitis B Surface Antibody QL NON-REACT FELIX NON-REACT [employer] [place] [facility] Hepatitis B Surface Ag NON-REACT FELIX NON-REACT [employer] [place] [facility] Hepatitis B Core Antibody Total NON-REACT FELIX NON-REACT [employer] [place] [facility] Hepatitis C Antibody NON-REACT FELIX NON-REACT [employer] [place] [facility] Index 0.10 <1.00 [employer] [place] [facility] Comment: HCV antibody was non-reactive. There is no laboratory evidence of HCV infection. In most cases, no further action is required. However, if recent HCV exposure is suspected, a test for HCV RNA (test code 07073) is suggested. For additional information please refer to http://education.[employer]/faq/ZHE86z7 (This link is being provided for informational/ educational purposes only.) 02/21/2023 9:42 AM EDT 02/21/2023 9:43 AM EDT Narrative [facility] - 02/26/2023 6:45 AM EDT FASTING:NO FASTING: NO Katina Tran MD LAB BLOOD ORDERABLES Fin al Result [facility] [address] [place] [phone] [facility] [address] [place] [phone] * Mammography (02/12/2023) Mammogram BI-RADS 1: Negative Anatomical Region Laterality Modality Other Historical Provider HEALTH MAINTENANCE Final Result from Last 3 Months or Most Recently Relevant to Health Maintenance Insurance [facility] C3 HSN FULL Care Teams Academic Interventionist Relationship Specialty Start Date End Date Katina Tran MD [address] [place] [phone] PCP - General Family Medicine 06/28/17
== END 2025-01-15 14:30 | disposition home or self-care (01) ==
LOC: HO.HHCL 14:29
PROVIDERS: Visit Provider Internal Medicine Geriatric Medicine
DX: I10 Essential (primary) hypertension (principal); R60.0 Localized edema
CPT/HCPCS: 36415; 80048

== ENCOUNTER 2025-04-30 11:30 | Outpatient (REF) | payer MEDICAID, SELFPAY ==
--- NOTE | ~2025-04-30 | XR_ITS ---
EXAMINATION: XR ANKLE, LEFT CLINICAL INFORMATION: persistent lateral ankle pain and swelling, h/o fracture COMPARISON: None available. TECHNIQUE: AP, lateral, and mortise views of the left ankle. FINDINGS: No acute cortical disruption or malalignment. No lytic or blastic lesions. Osteopenia versus osteoporosis. Calcaneal plantar spur. Exostosis at the Achilles tendon insertion. Vascular calcifications.. XR/XR ankle LT min 3V IMPRESSION: No acute fracture or dislocation. Plantar calcaneal spur. Enthesopathy, Achilles tendon. Atherosclerosis disease, peripheral.. Electronically signed by: Dung Camacho MD 04/30/2025 12:35 PM EDT
--- OUTSIDE RECORDS SUMMARY | 2025-04-30 12:24 | XMS_ITS | Clinical Summary ---
Author Organization [facility] Address [address] [facility] [address] [place] [phone] Phone Care Team Providers Care Character Artist Name Role Phone Katina Tran MD Primary Care Provider + Allergies No known active allergies Medications labetaloL (TRANDATE) 200 MG tablet Take 2 tablets (400 mg total) by mouth every 12 (twelve) hours. 90 tablet 1 Active Additional Information Patient not taking.Reported on 10/03/2024 Active Problems Problem Noted Date Diagnosed Date Acute respiratory failure with hypoxia Assessment & Plan (03/02/2024 10:37 PM EDT): Placed on nitro drip. Given IV Lasix and briefly required BiPAP. Now maintaining good oxygenation on room air and feeling well. Hypertensive emergency 03/02/2024 Assessment & Plan (03/03/2024 9:24 AM EDT): Accelerated hypertension with hypertensive emergency in the setting of uptrending troponins and flash pulmonary edema. Blood pressure improved after nitroglycerin drip, will wean off the drip as able. Metoprolol switched to labetalol Acute pulmonary edema 03/02/2024 Assessment & Plan (03/02/2024 10:38 PM EDT): Due to hypertensive emergency, but bedside echocardiogram concerning for reduced ejection fraction at around 40%. Will obtain formal echocardiogram. Essential hypertension 03/02/2024 Do not intubate, perform CPR, or defibrillate Overview (03/02/2024): POLST completed at bedside. Amenable to NIPPV. Assessment & Plan (03/03/2024 9:25 AM EDT): She is a DO NOT RESUSCITATE and DO NOT INTUBATE. This was verified using fell cutter services. Patient's sister confirmed that this is a long held belief. Family History Medical History Relation Comments Heart disease Mother Hypertension Mother Arthritis Sister Relation Status Comments Father Mother Sister Social History Tobacco Use Types Packs/Day Years Used Date Smoking Tobacco: Never Smokeless Tobacco: Never Tobacco Cessation:Counseling Given: Not Answered Alcohol Use Standard Drinks/Week Comments Never 0 (1 standard drink = 0.6 oz pur e alcohol) Education Answer Date Recorded Are you interested in more education? Not on marina e 03/02/2024 Are you concerned about learning? Not on file 03/02/2024 No 03/02/2024 No 03/02/2024 Food Answer Date Recorded Within the past 6 months we worried whether our food would run out before we got money to buy more. Sometimes True 024 Within the past 6 months the food we bought just didn't last and we didn't have enough money to get more. Sometimes True 02/06 Residential Stability Answer Date Recor ded What is your housing situation today? I have akshat sing 03/03/2024 How many times have you move d in the past 12 months? Zero (I did not move) 03/03/2024 Paying for Meds Answer Date Recorded Do you have trouble paying for medicines? No 03/03/2024 Paying Utility Bills Answer Date Record ed Do you have trouble paying your heating or elect ricity bill? No 03/03/2024 Transportation Answer Date Recorded Has the lack of transportati on kept you from medical appointments or from getting medications? No 03/03/2024 Digital Access Answer Date Recorded No 03/03/2024 Yes 03/03/2024 Do you have reliable internet access at home? Ye s 03/03/2024 Do you have a device (e.g., phone, tablet, computer) with a working camera? Yes 03/03/2024 Intimate Partner Violence Answer Date R ecorded Are you denied basic needs s uch as food, clothing, or medical care? No 03/02/2024 In the past 12 months have y ou been in a relationship with a person who hurts, threatens, or tries to control you? No 03/02/2024 Are you denied basic needs s uch as food, clothing, or medical care? No 03/02/2024 In the past 12 months have y ou been in a relationship with a person who hurts, threatens, or tries to control you? No 03/02/2024 Comments Unknown Sex and Gender Information Value Date Recorded Sex Assigned at Female 03/02/2024 7:19 PM EDT Legal Sex Female 6:11 PM EDT Gender Identity Female 03/02/2024 7:19 PM EDT Sexual Orientation Don't know 03/02/2024 7: 19 PM EDT Last Filed Vital Signs Vital Sign Reading Time Taken Comments Blood Pressure 200/82 08/20/2024 11:55 AM EST Pulse 71 08/20/2024 11:55 AM EST Temperature 36.6 C (97.9 F) 08/20/2024 11:55 AM EST Respiratory Rate 20 08/20/2024 11:55 AM EST Oxygen Saturation 98% 08/20/2024 11:55 AM EST Inhaled Oxygen Concentration 50% 03/02/2024 7 :25 PM EDT Weight 81.6 kg (180 lb) 08/20/2024 11:55 AM EST Height 134.6 cm (4' 5 ) 08/20/2024 11:55 AM EST Body Mass Index 45.05 08/20/2024 11:55 AM EST Plan of Treatment Health Maintenance Due Date Last Done Comments Adult Td,Tdap Booster 1960 DEPRESSION SCREENING 1972 HEPATITIS C SCREENING 1978 HIV ONE-TIME SCREENING (18-6 5 YEARS) 1978 PNEUMOCOCCAL VACCINES (50+ years) (1 of 2 - PCV) 1979 PAP SMEAR 1981 COLOGUARD 2005 COLONOSCOPY 2005 COLORECTAL CANCER SCREENING 2005 FIT TEST 2005 FOBT 2005 SIGMOIDOSCOPY 2005 VIRTUAL COLONOSCOPY 2005 ZOSTER VACCINES (1 of 2) 2010 RSV VACCINE (1 - Risk 60-74 years 1-dose series) 2020 COVID-19 VACCINE (1 - 2023-2 5 season) 2024 MAMMOGRAM 02/12/2025 02/12/2023 BLOOD PRESSURE 02/17/2025 08/20/2024 SCREENING FOR DIABETES 03/04/2027 , 03/03/2024 LIPID PANEL 03/03/2029 03/03/2024 SMOKING STATUS SCREENING (On ce After 26 Yrs) Completed 10/03/2024 HEPATITIS A VACCINES Aged Out No long er eligible based on patient's age to complete this topic HIB VACCINES Aged Out No longer eligi ble based on patient's age to complete this topic MENINGOCOCCAL VACCINES (ACWY) Aged Out No longer eligible based on patient's age to complete this topic MENINGOCOCCAL VACCINES (B) Aged Out N o longer eligible based on patient's age to complete this topic Medical Devices Not on file Procedures Procedure Name Priority Date/Time Associated Diagnosis Comments LIPID PANEL Routine 03/03/2024 7:09 AM EDT from Last 3 Months or Most Recently Relevant to Health Maintenance Results * (ABNORMAL) Lipid panel (03/03/2024 7:09 AM EDT) HDL 37 mg/dL [facility] Comment: Interpretation <40 mg/dL: Low HDL cholesterol (major risk factor for CHD) Greater than or equal to 60 mg/dL: High HDL cholesterol ( negative risk factor for CHD) HDL - cholesterol is affected by a number of factors, e.g. smoking, excerise, hormones, sex and age. CHOLESTEROL 118 0 - 240 mg/dL [facility] TRIGLYCERIDES 153 30 - 160 mg/dL [facility] LDL 50 50 - 129 mg/dL [facility] Comment: LDL levels in terms of risk for coronary heart disease: <100 mg/dL: Optimal 100-129 mg/dL: Near or above optimal 130-159 mg/dL: Borderline high 160-189 mg/dL: High >190 mg/dL: Very High CARDIAC RISK RATIO 3.2(L) 3.3 - 4.4 C [facility] Blood 03/03/2024 7:09 AM EDT 03/03/2024 7:47 AM EDT us Rehan Cordoba DO LAB BLOOD ORDERABLES Final Re sult [place] [phone] from Last 3 Months or Most Recently Relevant to Health Maintenance Insurance C3 ACO C3 ACO C3 ACO C3 ACO C3 ACO C3 ACO Advance Directives For more information, please contact: [phone] (9AM - 5PM Ame/[facility], Sunday-Sunday) Documents on File Type Date Recorded Patient Optical Fabrication Technician Ashwin MORALES 03/06/2024 1:05 PM * Full Code (Latest Code Status on File) Date Activated Date Inactivated Comments 03/04/2024 11:38 AM Question Answer Comments Code Status Confirmed With: PatientFamily * DNR/DNI (No CPR/No Intubation) Date Activated Date Inactivated Comments 03/02/2024 10:44 PM 03/04/2024 11:38 AM Question Answer Comments Code Status Confirmed With: PatientFamily Code Discussion Comments: POLST completed at bed side Care Teams Character Artist Relationship Specialty Start Date End Date Katina Tran MD [address] [place] [phone] PCP - General Internal Medicine 03/06/24 Additional Source Comments The information contained in this document represents components of the legal health record. It is not the complete legal health record.[facility]
--- OUTSIDE RECORDS SUMMARY | 2025-04-30 12:24 | XMS_ITS | Clinical Summary ---
Author Organization [employer] Address [address] [facility] [address] [place] [address] Care Team Providers Care Biophysics Professor Name Role Phone Katina Tran MD Primary Care Provider + Allergies No known active allergies Medications * This document contains information received from the source organization and may not represent a complete record from that organization. ergocalciferol (Vitamin D2) 1.25 MG (46486 UT) capsule TAKE 1 CAPSULE BY MOUTH ONCE A WEEK 12 capsule 3 01/26/20 23 Active labetalol (Normodyne) 200 MG tablet Take [...] day. 90 tablet 1 01/06/20 25 Active lisinopril 10 MG tabletIndication s:Primary hypertension TAKE 1 TABLET BY MOUTH EVERY DAY 90 tablet 1 04/23/20 25 Active acetaminophen (Tylenol 8 Hour) 650 MG ER tablet Take 1 tablet (650 mg) by mouth every 8 (eight) hours if needed for mild pain. Do not crush, chew, or split. 50 tablet 1 04/30/20 25 026 Active naproxen (Naprosyn) 500 MG tablet Take 1 tablet (500 mg) by mouth if needed in the morning and at bedtime for mild pain. 30 tablet 04/30/20 25 026 Active Diclofenac Sodium 1 % gel Apply 2 g topically if needed in the morning, at noon, in the evening, and at bedtime (pain). 150 g 3 04/30/20 25 Active clotrimazole (Lotrimin) 1 % cream Apply topically 2 times daily for 28 days. 30 g 2 04/30/20 25 025 Active lisinopril 10 MG tabletIndication s:Primary hypertension Take 1 tablet (10 mg) by mouth Once per day. 90 tablet 01/16/20 25 025 Discontinued Active Problems Problem Noted Date Diagnosed Date [...] Plan (03/05/2024 2:13 PM EDT): Admitted to [facility] on 03/02/24, improved now. Continue lasix 40mg+ Labetalol 400mg bid + amlodipine 5mg/d + ASA 81mg Refer to cardiology ([facility] Dr Goldsmith) Advised re tight control of [...] Her protective factors are family ties and mandaen beliefs. She calls her siter or oldest [...] any TB contact. Pt grew up in [facility], most likely past primary infection. 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 Counseled re low salt diet/increase moderate physical activity. Check home BP BIW and prn CP/BARRON/SOTO Non smoking patient. FU with RN in [...] Encounters Date Type Department Care Team Description 04/30/2025 10:20 AM EDT Office Visit [facility] WALK-IN [address] [phone] Chronic pain of left ankle (Primary Dx); Onychomycosis 04/30/2025 Travel 04/22/[address] [facility] MED[facility] [address] [place] [address] Katina Tran MD Primary hypertension 02/06/[address] [facility] [address] [place], [place] [phone] Katina Tran MD No Show 02/02/[address] [facility] MED[facility] [address] [place], [place] [phone] Katina Tran MD Chart prep 01/30/2025 Patient Outreach [facility] MED & PEDS [address] [place], [place] [phone] Katina Tran MD Pre-visit Planning ([facility] unable to reach [facility] ) from Last 3 Months Immunizations Immunization Administration Dates Next Due Influenza injectable quadriv [...] housing situation today? I have akshat sing 01/30/[address] you li [...] Sign Reading Time Taken Comments Blood Pressure 146/94 04/30/2025 9:57 AM EDT Pulse 62 04/30/2025 9:57 AM EDT Temperature 36.7 C (98 F) 04/30/2025 9:57 AM EDT Respiratory Rate 17 04/30/2025 9:57 AM EDT Oxygen Saturation 97% 02/06/2024 10:11 AM EDT Inhaled Oxygen Concentration - - Weight 84.6 kg (186 lb 9.6 oz) 04/30/2025 9:57 A M EDT Height 165.1 cm (5' 5 ) 04/30/2025 9:57 AM EDT Body Mass Index 31.05 04/30/2025 9:57 AM EDT Plan of Treatment Upcoming Encounters Date Type Department Care Team (Late st Contact Info) Description 06/16/2025 10:00 AM EDT Office Visit [facility] MEDICINE [address] [place] [address] Katina Tran MD [address] [place] [address] Health Maintenance Due Date Last Done Comments CT Colonography 1960 Colonoscopy 1960 Colorectal Cancer Screening 1960 FIT DNA/Cologuard 1960 FIT 1960 FOBT 1960 HIV Screening 1960 Sigmoidoscopy 1960 Disability Screening 1960 Alcohol/Substance Use Screening 1972 DTaP/Tdap/Td Vaccines (1 - Tdap) 1979 Pneumococcal Vaccine: 50+ Years (1 of 2 - PCV) 1979 Pap Smear 1981 Cervical Cancer Screening 1990 HPV/Cotest 1990 RSV Patients and Patients Aged 60 years or older (1 - Risk 60-74 years 1-dose series) 2020 Zoster Vaccines (2 of 2) 03/30/2023 02/02/2023 Mammogram 02/13/2024 02/12/2023, 05/0 05/2023, 02/12/2023, Additional history exists COVID-19 Vaccine ( - season) 2024 04/17/2021, 03/20/2021 Depression Monitoring 09/05/2024 03/05/2024, 024 SDOH Screening 01/29/2025 01/30/2024 Influenza Vaccine (#1) 2025 06/28/2017 Tobacco Screening 04/30/2026 04/30/2025 Lipid Panel 02/06/2029 02/07/2024, 02/05, 06/27/2021 Hepatitis C Screening Completed 02/21/2023 HIB [...] patient's age to complete this topic Meningococcal B Vaccine Aged Out No l onger eligible based on patient's age to complete [...] Priority Date/Time Associated Diagnosis Comments LIPID PANEL WITH REFLEX TO DIRECT LDL Routine 02/07/2024 12:17 PM EDT Precordial pain Hypertensive urgency HEPATITIS PANEL, GENERAL Routine 02/21/2023 9:42 AM EDT Encounter for preventive health examination HM MAMMOGRAPHY Routine 02/12/2023 from Last 3 Months or Most Recently Relevant to Health Maintenance Results * (ABNORMAL) Lipid Panel with Reflex to Direct LDL (02/07/2024 12:17 PM EDT) Triglycerides 122 <150 mg/dL [facility] Comment:Desirable Triglyceri de: less than 150 mg/dLBorderline High Triglyceride 150-199 mg/dLHigh Triglyceride: 200-499 mg/dLVery High Triglyceride: greater than or equal to 5OO mg/dL Cholesterol 128 <200 mg/dL [facility] Comment:Desirable Cholestero l: less than 200 mg/dLBorderline High Cholesterol: 200-239 mg/dLHigh Cholesterol: greater than 239 mg/dL LDL Cholesterol Calculated 66 <100 mg/dL [facility] Comment:Desirable LDL: less than 100 mg/dLNear Optimal/Above Optimal LDL: 110- 129 mg/dLBorderline High LDL: 130-159 mg/dLHigh LDL: 160-189 mg/dLVery High LDL: greater than or equal to 190 mg/dL HDL Cholesterol 38(L) >40 mg/dL [facility] Comment:Desirable HDL: great er than 40 mg/dL Note: This HDL assay may give artificially low results in patients with liver disease. Blood 02/07/2024 12:1 7 PM EDT 02/07/2024 12:57 PM EDT us Katina Tran MD LAB BLOOD ORDERABLES Fin al Result [facility] [address] [place] [phone] * (ABNORMAL) Hepatitis Panel, General (02/21/2023 9:42 AM EDT) Hepatitis A Antibody Total REACTIVE( A) NON-REACT FELIX [facility] Comment: For additional information, please refer to http://[employer]/faq/RIK563 (This link is being provided for informational/ educational purposes only.) Hepatitis B Surface Antibody QL NON-REACT FELIX NON-REACT FELIX [facility] [place] [facility] Hepatitis B Surface Ag NON-REACT FELIX NON-REACT FELIX [facility] [facility] [place] [facility] Hepatitis B Core Antibody Total NON-REACT FELIX NON-REACT FELIX [facility] [place] [facility] Hepatitis C Antibody NON-REACT FELIX NON-REACT FELIX [facility] [place] [employer] Index 0.10 <1.00 [facility] [place] [facility] Comment: HCV antibody was non-reactive. There is no laboratory evidence of HCV infection. In most cases, no further action is required. However, if recent HCV exposure is suspected, a test for HCV RNA (test code 63568) is suggested. For additional information please refer to http://[employer]/faq/JOS17n5 (This link is being provided for informational/ educational purposes only.) 02/21/2023 9:42 AM EDT 02/21/2023 9:43 AM EDT Narrative [facility] - 02/26/2023 6:45 AM EDT FASTING:NO FASTING: NO Katina Tran MD LAB BLOOD ORDERABLES Fin al Result [facility] [address], [place] [phone] [facility] [address] [place] [phone] * Mammography (02/12/2023) Mammogram BI-RADS 1: Negative Anatomical Region Laterality Modality Other us Historical Provider HEALTH MAINTENANCE Final Result from Last 3 Months or Most Recently Relevant to Health Maintenance Insurance [facility] C3 HS FULL Care Teams Biophysics Professor Relationship Specialty Start Date End Date Katina Tran MD [address] [place] [phone] PCP - General Family Medicine 06/28/17
== END 2025-04-30 11:31 | disposition home or self-care (01) ==
LOC: HO.HHCX 11:30
PROVIDERS: Visit Provider Family Medicine
DX: M25.572 Pain in left ankle and joints of left foot (principal); G89.29 Other chronic pain
CPT/HCPCS: 73610

== ENCOUNTER → 2025-04-30 11:30 | Outpatient (BNV) | payer MEDICAID, SELFPAY | PROVIDERS: Visit Provider Radiology Diagnostic Radiology | DX: M76.62 Achilles tendinitis, left leg (principal) | CPT/HCPCS: 73610 ==

== ENCOUNTER 2025-06-18 10:31 | Outpatient (REF) | payer MEDICAID, SELFPAY ==
[2025-06-18 12:27] LABS: Anion Gap 11 (12-20); Blood Urea Nitrogen 18 mg/dL (9-16); Calcium 9.0 mg/dL (8.4-10.2); Carbon Dioxide 27 mmol/L (22-29); Chloride 108 mmol/L (96-108); Cholesterol 116 mg/dL (<200); Estimated Glomerular Filt Rate > 60; HDL Cholesterol 33 mg/dL (>40); Potassium 4.3 mmol/L (3.3-5.1); Sodium 142 mmol/L (135-145); Triglycerides 119 mg/dL (<150)
[2025-06-18 12:45] LABS: Reflex LDLD? No
== END 2025-06-18 10:32 | disposition home or self-care (01) ==
LOC: HO.HHCL 10:31
PROVIDERS: PCP Internal Medicine; Visit Provider Internal Medicine
DX: I10 Essential (primary) hypertension (principal); E55.9 Vitamin D deficiency, unspecified
CPT/HCPCS: 36415; 80048; 80061; 82306; 84443